=== PATIENT | male | born 1925 | race Caucasian/White ===

== ENCOUNTER 2017-05-03 08:33 | Emergency (ER) | payer MEDICARE, OTHER ==
[~2017-05-03] VITALS: Ht 167.6 cm; Wt 72.6 kg
[~2017-05-03 08:33] MED LIST: ALEVE220 M1 PO; AMLODIPINE BESY10 MG PO; CLINDAMYCIN HC300 MG PO; FISH OIL 1,0001 EAC2 NG; FISH OIL500 MG PO; LEVAQUIN 5500 MG/100 PO; LISINOPRIL-HCT1 EACH PO; MINIPRESS1 MG PO; NORVASC10 MG PO; NORVASC2.5 MG PO; NORVASC5 MG PO; OMEPRAZOLE MAGN20 MG PO; OMEPRAZOLE20 MG PO; ONDANSETRON ODT8 MG PO; OXYBUTYNIN CHLOR5 MG PO; PATADAY2.5 ML OU; PERCOCET 7.5-31 EACH PO; PROSCAR5 MG PO; REFRESH TEARS15 ML OU; TAMIFLU75 MG PO; VITAMIN D32000 UNI1 PO; ZANAFLEX2 M1 PO
[2017-05-03] MEDS ORDERED: PATADAY2.5 ML OPTH (10:38)
[2017-05-03] MEDS ORDERED: VITAMIN D-32000 UNIT PO (10:44)
[2017-05-03] MEDS ORDERED: TERAZOSIN HCL2 MG PO (10:45)
--- NOTE | 2017-05-04 00:59 | EKG ---
[facility] [address] [facility] [place], [place] [address] Signed Sinus bradycardia Otherwise normal ECG No previous ECGs available Confirmed by ALISE BANDA MD ([id number] on 05/04/2017 12:59:37 AM Electronically Signed By: ALISE BANDA MD 05/04/17 0059 PATIENT NAME: SALLY URIBE SCOOBY Electrocardiogram DATE OF : [birth year] PHYSICIAN: ALISE BANDA MD REPORT #: [id number] REPORT IS CONFIDENTIAL AND NOT TO BE RELEASED WITHOUT AUTHORIZATION
== END 2017-05-03 11:35 | disposition home or self-care (01) ==
LOC: ED 08:33
DX: D64.9 Anemia, unspecified (principal); R53.1 Weakness; R42 Dizziness and giddiness; R00.1 Bradycardia, unspecified; I10 Essential (primary) hypertension; C61 Malignant neoplasm of prostate; Z87.891 Personal history of nicotine dependence; Z90.49 Acquired absence of other specified parts of digestive tract; Z86.73 Personal history of transient ischemic attack (TIA), and cerebral infarction without residual deficits
CPT/HCPCS: 71020; 80053; 81001; 84484; 85025; 93005; 93010; 96360; 99284; J7030